=== PATIENT | male | born 1950 | race Caucasian/White ===

== ENCOUNTER 2022-12-15 01:59 | Inpatient (IN) | payer MEDICARE, OTHER ==
[~2022-12-15] VITALS: Ht 172.7 cm; Wt 69.9 kg
--- NOTE | 2022-12-15 02:20 | NUR ---
Patient is medically cleared.
--- NOTE | 2022-12-15 03:34 | NUR ---
Recieved room number from [place]. Pt will be placed in 141-B.
--- NOTE | 2022-12-15 06:30 | NUR ---
Called [facility] and gave report to Jayshree ROBLEDO.
[2022-12-15] MEDS ORDERED: MAG HYDROX/AL HYDROX/SIMETH 30 ML LIQUID UDC PO PRN (06:45)
[2022-12-15] MEDS ORDERED: MAGNESIUM HYDROXIDE 30 ML LIQUID UDC PO PRN (06:45)
[2022-12-15] MEDS ORDERED: ZOLPIDEM 5 MG TABLET PO PRN (06:45)
--- NOTE | 2022-12-15 07:00 | NUR ---
Admission Note: A 72 Yr Old patient was brought to the ER . Pt was placed on a 5150 hold for DTO/DTS Per hold,Patients called stating her locked out of the of her home and was acting erratically, patient also had air gun, and has been making treat to kill his family member in [place]. Pt stated he has no medical , mental, emotional problems, not taking any medications and never has been in psychiatric hospital. Upon face to face evaluation, Pt was irritable,angry, elevated mood, speech is pressured, poor insight. Pt is A/O X3 .Head to toe assessment done and pt was oriented to the unit. A patients rights hand book and advisement provided. Reassurance provided, Fall and Safety measures put in place. No acute distress noted. Continue to monitor for safety, continue with treatment plan, emotional support provided.
[2022-12-15 07:42] VITALS: BP 142/78
--- NOTE | 2022-12-15 09:14 | NUR ---
GPS: Patient Showered/Shave this morning, patient with elevated mood, angry at his and daughter. Patient seen by Psychiatrist, and educated patient on his hold and treatment plan while at [facility]. Patient verbalized understanding.
--- NOTE | 2022-12-15 12:07 | NUR ---
GPS: Spoke patient , (Jasmin), @ . cell phone. Patient requesting to speak to daughter and other family member. refused to provided family member phones number.
[2022-12-15] MEDS: ACETAMINOPHEN 325 MG TABLET PO PRN (12:23)
--- NOTE | 2022-12-15 12:36 | NUR ---
GPS: Patient continues with angry mood stated, "I am not crazy, my send me here, I going to mónica everyone here! Freequent verbal redirection requiering . Complained of Head ache prn pain medication given at this time. Fall and safety precautions implement, emotional support provide. Will continue to monitor.
[2022-12-15] MEDS: LORAZEPAM 1 MG TABLET PO PRN ×2 (14:14→21:47)
--- NOTE | 2022-12-15 14:27 | NUR ---
GPS: Patient verbally abusive, "Fuckers you are keeping in here in [facility], my won't answers the phone, and I want to talk to my daughter and son". as need it medication given for anxiety/agitation at this time, will continue to monitor.
[2022-12-15 16:15] VITALS: BP 130/74
[2022-12-15 19:46] VITALS: BP 126/76
[2022-12-15] MEDS ORDERED: QUETIAPINE FUMARATE 25 MG TABLET PO SCH (21:00)
--- NOTE | 2022-12-16 04:38 | NUR ---
Pt visible on unit and made his needs known. Pt took his bedtime medications and also requested some snacks which he was given before heading to bed. Pt was able to follow redirection without any problems
[2022-12-16 07:40] VITALS: BP 120/58
[2022-12-16] MEDS: ACETAMINOPHEN 325 MG TABLET PO PRN (07:52)
[2022-12-16] MEDS ORDERED: HALOPERIDOL LACTATE 5 MG/1 ML VIAL IM STA (08:29)
[2022-12-16] MEDS ORDERED: diphenhydrAMINE 50 MG/1 ML VIAL IM ONE (08:30)
[2022-12-16] MEDS: HALOPERIDOL 2 MG TABLET PO SCH ×4 (10:29→20:53)
[2022-12-16] MEDS: DIVALPROEX 250 MG TABLET.DR PO SCH ×3 (10:29→17:34)
[2022-12-16] MEDS: BENZTROPINE MESYLATE 1 MG TABLET PO SCH ×2 (10:29→16:00)
--- NOTE | 2022-12-16 14:27 | NUR ---
ISELA Discharge Update: ISELA contacted pt's , Jasmin ([phone]) and left a voicemail for a call back. ISELA also contacted pt's daughter, Cleveland ([phone]) and was not able to leave a voicemail due to full mailbox.
[2022-12-16 15:17] VITALS: BP_SYST 101; BP_SYST 128; BP_DIAS 57; BP_DIAS 66
[2022-12-16 19:20] LABS: CHOLESTEROL 160 mg/dL (<200); HDL CHOLESTEROL 48 mg/dL (40-60); TRIGLYCERIDES 58 MG/DL (30-150)
--- NOTE | 2022-12-16 19:34 | NUR ---
PT HAS BEEN AGITATED ON AND OFF THROUGHT THE SHIFT. EMERGENCY MEDICATIONS GIVEN AND WAS AFFECTIVE. PT IS COMPLIANT WITH MEDICATIONS WITH A LOT OF PROMPTING. PT HAD EPISODES OF BEING VERBALLY AGGRESSIVE AND THREATENING, ESPECIALLY THE DOCTOR AND MALE STAFF. PT IS GRANDIOSE, TALKS ABOUT BEING A BIG BUSINESSMAN. PT IS REDIRECTABLE AT THIS TIME.
[2022-12-16 19:43] LABS: THYROID STIMULATING HORMONE 4.038 mIU/mL (0.358-3.740)
[2022-12-16 19:44] VITALS: BP 126/60
--- NOTE | 2022-12-17 06:15 | NUR ---
Pt presents with labile mood. Takes all medications and is redirectable at times. Able to follow commands. Slept 4.15 hours.
--- NOTE | 2022-12-17 07:56 | NUR ---
GPS: patient in his room asleep. No S/S of distress or discomforts. Fall and safety precautions implemented.
[2022-12-17 08:07] VITALS: BP 122/66
[2022-12-17] MEDS: BENZTROPINE MESYLATE 1 MG TABLET PO SCH ×2 (08:13→16:34)
[2022-12-17] MEDS: DIVALPROEX 250 MG TABLET.DR PO SCH ×3 (08:13→16:34)
[2022-12-17] MEDS: HALOPERIDOL 2 MG TABLET PO SCH ×4 (08:13→20:12)
--- NOTE | 2022-12-17 09:05 | NUR ---
ISELA Discharge Update: ISELA spoke with Linda [facility] who authorized pt for hospitalization until 12/18/22. Authorization #[id number]. ISELA sent daily clinicals for review for continuation of care on 12/18/22. Linda is aware pt will return home with family upon discharge when pt is stable.
--- NOTE | 2022-12-17 09:06 | NUR ---
ISELA UR Note: ISELA spoke with Linda for [employer] who authorized pt for hospitalization until 12/18/22. Authorization #[id number]. ISELA sent daily clinicals for review for continuation of care on 12/18/22. Linda is aware pt will return home with family upon discharge when pt is stable.
--- NOTE | 2022-12-17 09:17 | NUR ---
ISELA Family Contact: SW contacted pt's daughter, Cleveland ([phone]) and discussed pt's discharge plan. Cleveland is aware and agreeable for her father to return kay upon discharge by her transportation. Cleveland stated her and her mother want to help the pt participate in outpatient therapy. ISELA stated this health underwriter will eave resources for Cleveland to receive during her evening visitation. Cleveland was very agreeable and appreciative.
--- NOTE | 2022-12-17 12:34 | NUR ---
ISELA Initial Discharge Note: Pt currently resides at home with his located at [address] [place] [address] ([phone]). Per pt, he will return to his home. ISELA spoke with pt's , Jasmin ([phone]) who stated pt is welcome back home as long as he is compliant with his medications. ISELA spoke with pt's daughter, Cleveland ([phone]) who is also involved his care and will provide pt's transportation home upon discharge. Pt does nto have a DPOA or conservator. ISELA will continue to work with pt, family and MD to ensure a safe and proper discharge plan.
--- NOTE | 2022-12-17 12:39 | NUR ---
Firearms Report: Laborer Driver completed and submitted a [employer] firearms report for 5150 a danger to self and a danger to others. A copy of report has been placed in patient chart.
--- NOTE | 2022-12-17 13:42 | NUR ---
GPS: Patient is refusing 13:00 medications, patient stated: " I dont want to take anymore drugs, leave me alone". Patient with irritable mood, pressured speech, angry, educated patient on the importance of taking medications, but continued to refused. Emotional support provide, Fall and safety precautions implemented. Will continue to monitor.
[2022-12-17 16:01] VITALS: BP 136/76
[2022-12-17 19:39] VITALS: BP 134/66
--- NOTE | 2022-12-18 07:15 | NUR ---
GPS: Patient up in AM, pacing around the hallway, denies pain and discomforts. No outburst behavior. Fall and safety precautions, Emotional support provided.
[2022-12-18 07:46] VITALS: BP 118/73
[2022-12-18] MEDS: HALOPERIDOL 5 MG TABLET PO SCH ×3 (08:24→20:13)
[2022-12-18] MEDS: DIVALPROEX 250 MG TABLET.DR PO SCH ×3 (08:24→16:32)
[2022-12-18] MEDS: BENZTROPINE MESYLATE 1 MG TABLET PO SCH ×2 (08:24→16:32)
[2022-12-18] MEDS ORDERED: HALOPERIDOL 2 MG TABLET PO SCH (09:00)
--- NOTE | 2022-12-18 09:36 | NUR ---
ISELA Discharge Update: ISELA spoke with Linda from [employer] who authorized pt for hospitalization on 12/18/22. Authorization #[id number]. ISELA sent daily clinicals for review for continuation of care on 12/19/22. Linda is aware pt will return home with family on Friday12/20/22. Linda stated she will contact this marine underwriter to provide follow-up psychiatrist appt for pt's continuation of care.
--- NOTE | 2022-12-18 09:37 | NUR ---
ISELA UR Note Update: ISLEA spoke with Linda from [employer] ([phone]) who authorized pt for hospitalization until 12/18/22. Authorization #[id number]. ISELA sent daily clinicals for review for continuation of care on 12/18/22. Linda is aware pt will return home with family upon discharge when pt is stable.
--- NOTE | 2022-12-18 09:37 | NUR ---
ISELA UR Note Review: ISELA spoke with Linda from [employer] who authorized pt for hospitalization on 12/18/22. Authorization #[id number]. ISELA sent daily clinicals for review for continuation of care on 12/19/22. Linda is aware pt will return home with family on Friday12/20/22. Linda stated she will contact this designer writer to provide follow-up psychiatrist appt for pt's continuation of care.
[2022-12-18 14:59] VITALS: BP 123/61
--- NOTE | 2022-12-18 18:16 | NUR ---
GPS: Patient is cooperative, medications compliance, denies pain or discomforts, Denies pain or discomfort. Emotional support provided.
[2022-12-18 19:46] VITALS: BP 115/69
--- NOTE | 2022-12-19 04:45 | NUR ---
Patient alert oriented, patient cooperative with care and medications, patient request for sleeping meds for insomnia, with help after one hour, stayed in his room, cont to monitor.
[2022-12-19 07:30] VITALS: BP 118/69
[2022-12-19] MEDS: DIVALPROEX 250 MG TABLET.DR PO SCH ×3 (08:51→17:22)
[2022-12-19] MEDS: HALOPERIDOL 5 MG TABLET PO SCH ×3 (08:51→20:47)
[2022-12-19] MEDS: BENZTROPINE MESYLATE 1 MG TABLET PO SCH ×2 (08:51→17:22)
--- NOTE | 2022-12-19 15:11 | NUR ---
Received patient pacing in the hallway. Patient is A/O X 3 to person, place, environment. Patient is demanding, needy, argumentative, talkative, compliant with medications with prompts, ambulatory without assistance. Emotional support provided. Fall and safety precautions implemented.
[2022-12-19 15:45] VITALS: BP 124/68
[2022-12-19] MEDS: CYANOCOBALAMIN 1,000 MCG TABLET PO SCH (17:24)
[2022-12-19 20:01] VITALS: BP 117/75
[2022-12-19 20:05] VITALS: BP 117/75
--- NOTE | 2022-12-20 04:36 | NUR ---
GPS NOTES: Patient ambulating in the hallway, A&0x4, orientation to current situation and reality intact. He is somewhat needy, making multiple requests. Needs setting limit to the behavior, at some point gets agitated and argues with staff because request is denied. Patient is med compliant. He is sleeping intermittently this shift, no distress observed. Safety strategies in placed.
[2022-12-20 07:31] VITALS: BP 106/59
[2022-12-20] MEDS: HALOPERIDOL 5 MG TABLET PO SCH ×2 (08:57→17:00)
[2022-12-20] MEDS: BENZTROPINE MESYLATE 1 MG TABLET PO SCH ×2 (08:57→17:00)
[2022-12-20] MEDS: CYANOCOBALAMIN 1,000 MCG TABLET PO SCH (08:57)
[2022-12-20] MEDS: DIVALPROEX 250 MG TABLET.DR PO SCH ×3 (08:57→17:00)
--- NOTE | 2022-12-20 14:58 | NUR ---
Patient is A/O X 3 to person, place, situation. Patient is demanding, needy, fixated on cleaning, suspicious and selective with medications. Patient states "Tell the doctor that those pills are poisoning me, I feel sleepy all the time". Patient requires no assistance with ADL. Active listening provided. Fall and safety precautions implemented.
[2022-12-20 15:48] VITALS: BP 118/66
--- NOTE | 2022-12-20 16:57 | NUR ---
REceived orders to discharge this patient to home at [address] [place] [address] by his son's private transportation. Patient is agreeable with discharge plans, and signed all discharge documents. All belongings were returned to patient. Patient denies SI/HI AH/VH, SOB, pain or any discomfort. Patient left unit at 1650. Emotional support provided. Fall and safety precautions implemented.
== END 2022-12-20 16:50 | disposition home or self-care (01) | DRG 885 ==
LOC: ER 01:59 → GPS 06:23
PROVIDERS: ADMIT Psychiatry & Neurology Psychiatry; ATTEND Nurse Practitioner Family
DX: F29 Unspecified psychosis not due to a substance or known physiological condition (principal); F31.2 Bipolar disorder, current episode manic severe with psychotic features; E03.8 Other specified hypothyroidism; Z86.19 Personal history of other infectious and parasitic diseases; E53.8 Deficiency of other specified B group vitamins; R45.850 Homicidal ideations; R73.9 Hyperglycemia, unspecified; Z20.822 Contact with and (suspected) exposure to COVID-19
CPT/HCPCS: 36415; 82747; 84443; 85014; A4663; J1200; J1630; J3490

== ENCOUNTER 2022-12-23 21:22 | Inpatient (IN) | payer OTHER ==
[~2022-12-23] VITALS: Ht 170.2 cm; Wt 69.9 kg
--- NOTE | 2022-12-23 21:30 | NUR ---
PT BIBA TO RM 2B VIA STRETCHER, VSS AND NAD OBSERVED. REPORT RECEIVED FROM PARAMEDICS.
--- NOTE | 2022-12-23 21:31 | NUR ---
Patient assigned bed 145 C for [facility] if medically cleared by Dr. Navarro.
[2022-12-23] MEDS ORDERED: diphenhydrAMINE 50 MG/1 ML VIAL IM ONE (21:45)
[2022-12-23] MEDS ORDERED: HALOPERIDOL LACTATE 5 MG/1 ML VIAL IM ONE (21:45)
[2022-12-23] MEDS ORDERED: HALOPERIDOL LACTATE 5 MG/1 ML VIAL ONE (21:46)
[2022-12-23] MEDS ORDERED: diphenhydrAMINE 50 MG/1 ML VIAL ONE (21:46)
--- NOTE | 2022-12-23 21:50 | NUR ---
LAB AT BEDSIDE DRAWING BLOOD.
[2022-12-23 22:04] LABS: HEMATOCRIT 39.4 % (36.7-47.1); MEAN CORPUSCULAR HEMOGLOBIN 32.4 uug (23.8-33.4); MEAN CORPUSCULAR VOLUME 96.1 fL (73.0-96.2); PLATELET COUNT (AUTO) 339 K/uL (152-348)
[2022-12-23 22:17] LABS: CARBON DIOXIDE 28 mmol/L (21-32); CHLORIDE 104 mmol/L (98-107); CREATININE 1.1 mg/dL (0.6-1.3); GLUCOSE 104 mg/dL (74-106); POTASSIUM 4.2 mmol/L (3.5-5.1); UREA NITROGEN, BLOOD 23 mg/dL (7-18)
--- NOTE | 2022-12-23 22:19 | NUR ---
CHEST X RAY DONE AT BEDSIDE.
--- NOTE | 2022-12-23 22:20 | NUR ---
PT EATING A MEAL.
[2022-12-23 22:22] LABS: ALANINE AMINOTRANSFERASE 22 U/L (16-63); ALKALINE PHOSPHATASE 83 U/L (50-136); ASPARTATE AMINOTRANSFERASE 15 U/L (15-37); BILIRUBIN,DIRECT 0.2 mg/dL (0.0-0.2); BILIRUBIN,TOTAL 0.6 mg/dL (0.2-1.0); TOTAL PROTEIN, SERUM 7.3 g/dL (6.4-8.2)
[2022-12-23 22:28] LABS: ETHANOL < 3 MG/DL (0-0)
[2022-12-23 22:30] LABS: THYROID STIMULATING HORMONE 2.676 mIU/mL (0.358-3.740)
--- NOTE | 2022-12-23 22:30 | NUR ---
Patient medically cleared by Dr. Navarro. Patient assigned Dr. Umanzor/Dr. Shaffer.
--- NOTE | 2022-12-23 22:34 | NUR ---
Report given to Nurse Madera.
[2022-12-23 22:47] LABS: ACETAMINOPHEN < 2.0 ug/mL (10-30)
--- NOTE | 2022-12-23 23:21 | NUR ---
URINE SAMPLE SENT TO LAB.
[2022-12-23 23:27] LABS: *BILIRUBIN,URIN NEGATIVE (NEGATIVE); *CLARITY,URINE CLEAR (CLEAR); *COLOR,URINE YELLOW (YELLOW); *KETONES,URINE NEGATIVE (NEGATIVE); *UROBILINOGEN,URINE 0.2 E.U./dl (NORMAL); LEUKOCYTE ESTERASE ,URINE NEGATIVE (NEGATIVE); NITRITE, URINE NEGATIVE (NEGATIVE); PH,URINE 6.5 (5.0-8.0); UGLUCOSE NEGATIVE (NEGATIVE)
[2022-12-23 23:36] LABS: *BLOOD, URINE NEGATIVE (NEGATIVE)
[2022-12-23 23:46] LABS: *AMPHETAMINE, URINE NEGATIVE (NEGATIVE); *CANNABINOID, URINE NEGATIVE (NEGATIVE); *COCCAINE, URINE NEGATIVE (NEGATIVE); *PHENCYCLIDINE SCREEN,URINE NEGATIVE (NEGATIVE)
--- NOTE | 2022-12-24 00:10 | NUR ---
Notified patient's daughter (Cleveland Case) of MHU admission.
--- NOTE | 2022-12-24 00:30 | NUR ---
Patient admitted to [facility].
--- NOTE | 2022-12-24 01:20 | NUR ---
Patient was tasken to [facility]. Nurse Madera aware of patient's arrival to unit. Belongings list completed.
[2022-12-24] MEDS ORDERED: LORAZEPAM 0.5 MG TABLET PO PRN (01:30)
[2022-12-24] MEDS ORDERED: MAGNESIUM HYDROXIDE 30 ML LIQUID UDC PO PRN (01:30)
[2022-12-24] MEDS ORDERED: BLOOD SUGAR DIAGNOSTIC 1 EACH STRIP VI ONE (01:30)
[2022-12-24] MEDS ORDERED: ACETAMINOPHEN 325 MG TABLET PO PRN (01:30)
[2022-12-24] MEDS ORDERED: MAG HYDROX/AL HYDROX/SIMETH 30 ML LIQUID UDC PO PRN (01:30)
[2022-12-24 01:40] VITALS: BP 111/71
--- NOTE | 2022-12-24 02:22 | NUR ---
Nursing Admission Note: Received 72 y/o male patient on a 5150 hold d/t DTS, DTO, GD. Pt will under the care of Dr. Shaffer and Dr. Umanzor. Per hold, pt was brought into the ER via [employer]. The daughter called the police on him d/t the patient threatening her with a power drill. He was also noted to not have been taking his medications for days. He had also threatened to kill his . Upon face to face assessment, patient was AOx3, self ambulatory, and self care. He was calm, withdrawn, and slightly down in mood. He denied all reasons for his hold. He was given his Advisement, Patient's Rights, and his own Patient's Handbook. Patient refused any snacks or drinks, and just wanted to be brought to his room where he quickly fell asleep. All safety strategies implemented. Will continue to monitor.
[2022-12-24 07:30] VITALS: BP 141/90
[2022-12-24] MEDS: HALOPERIDOL 5 MG TABLET PO SCH ×3 (09:43→20:00)
[2022-12-24] MEDS: DIVALPROEX 250 MG TABLET.DR PO SCH ×3 (09:43→17:00)
[2022-12-24] MEDS: BENZTROPINE MESYLATE 1 MG TABLET PO SCH ×3 (09:43→17:00)
--- NOTE | 2022-12-24 12:34 | NUR ---
ISELA UR Note Update: ISELA contacted Linda from [employer] ([phone]) and left a voicemail for a call back to discuss pt's discharge plan and new admission for authorization for continuation of care at [facility]. ISELA also spoke with pt's daughter, Cleveland ([phone]) regarding the voicemail and pending authorization from [employer].
--- NOTE | 2022-12-24 14:47 | NUR ---
Receive patient pacing in the hallway. Patient is A/O X 3 to person, place. Patient has poor judgement and impulse control, has outburst and agitation at times, talkative, argumentative, needy, demanding, compliant with medications with lots of prompts, but refuses 13:00 Psych medication. Patient requires no assistance with ADL, ambulates independently, continent. Active listening is provided. Fall and safety precautions implemented.
[2022-12-24 15:30] VITALS: BP 97/49
[2022-12-24 20:01] VITALS: BP 109/70
--- NOTE | 2022-12-24 21:12 | NUR ---
Patient was restless and asked for a sleeping aid. Temazepam 7.5 mg po prn was given. Safety strategies in place. Will continue to monitor.
[2022-12-24] MEDS: TEMAZEPAM 7.5 MG CAPSULE PO PRN (21:14)
[2022-12-25 07:56] VITALS: BP 118/90
[2022-12-25] MEDS: BENZTROPINE MESYLATE 1 MG TABLET PO SCH ×2 (08:10→20:14)
[2022-12-25] MEDS: HALOPERIDOL 5 MG TABLET PO SCH ×2 (08:10→20:14)
[2022-12-25] MEDS: DIVALPROEX 250 MG TABLET.DR PO SCH (08:10)
--- NOTE | 2022-12-25 08:33 | NUR ---
ISELA UR NOTE: ISELA spoke with Linda ([phone]) from [facility] who provided SW with pt's authorization number for continuation of stay until 12/26/22. ISELA will provide daily updates for pt's daily review per Linda. Authorization #[id number]. F:[phone]
--- NOTE | 2022-12-25 09:12 | NUR ---
SW ATTESTATION: IIra, SCREENER OPERATOR attest to the accuracy of the psychosocial done on December 17, 2022. On the admission for December 17, 2022, the patient was admitted to [facility]. He was living at home with family located at [address] [place] [address] ([phone]). SW had spoken to pts daughterCleveland ([phone]) who had stated that pt is welcome back home and confirmed to provide his transportation upon discharge. This writer editor continually updated Cleveland and the pt on his treatment and discharge plan updates. Pt was stable for discharge by pts psychiatrist, Dr. Shaffer and was successfully discharged home with [employer] transportation. This SW arranged psychiatrist and lining baster appointment for the pt to follow-up with Linda from [facility] ([phone]) who authorized pt for hospitalization (authorization #[id number]) throughout his stay. Pt will follow-up with psychiatrist, Dr. Munoz upon discharge, IRRIGATOR GRAVITY FLOW, Jonn Colin and counter caser, Tereza. Pt denied suicidal and homicidal ideations. Pt denied visual and auditory hallucinations. During admission of December 24, 20222022, pt. appeared to be verbally abusive and impulsive. Pt was readmitted on December, due to destructive behavior at home and verbally abusive. Pt was feeling angry. Pt was yelling and not redirectable without regards to his safety. During this writers evaluation, pt. appeared to be angry and continually yelled, This is snf! Pt stated, I want to go home I dont deserve this!. Pt appeared unable to have a proper conversation due to his anger. Pt appeared unable to focus and appears to be mentally preoccupied with his anger towards his family. yarn worker will contact pts daughter, Cleveland ([phone]) to see if pt is welcomed back home. If not, this SW will find an alternative placement for pt. Family will be notified.
--- NOTE | 2022-12-25 09:13 | NUR ---
SW ATTESTATION UPDATE: IIra, TESTING MANAGER attest to the accuracy of the psychosocial done on December 17, 2022. On the admission for December 17, 2022, the patient was admitted to [facility]. He was living at home with family located at [address] [place] [address] ([phone]). SW had spoken to pts daughterCleveland ([phone]) who had stated that pt is welcome back home and confirmed to provide his transportation upon discharge. This travel writer continually updated Cleveland and the pt on his treatment and discharge plan updates. Pt was stable for discharge by pts psychiatrist, Dr. Shaffer and was successfully discharged home with [employer] transportation. This SW arranged psychiatrist and amphibious operations officer appointment for the pt to follow-up with Linda from [facility] ([phone]) who authorized pt for hospitalization (authorization #[id number]) throughout his stay. Pt will follow-up with psychiatrist, Dr. Munoz upon discharge, RIPPLER, Jonn Colin and case aide, Tereza. Pt denied suicidal and homicidal ideations. Pt denied visual and auditory hallucinations. During admission of December 24, 20222022, pt. appeared to be verbally abusive and impulsive. Pt was readmitted on December, due to destructive behavior at home and verbally abusive. Pt was feeling angry. Pt was yelling and not redirectable without regards to his safety. During this writers evaluation, pt. appeared to be angry and continually yelled, This is senior living! Pt stated, I want to go home I dont deserve this!. Pt appeared unable to have a proper conversation due to his anger. Pt appeared unable to focus and appears to be mentally preoccupied with his anger towards his family. christmas tree farm worker will contact pts daughter, Cleveland ([phone]) to see if pt is welcomed back home. If not, this SW will find an alternative placement for pt. Family will be notified.
--- NOTE | 2022-12-25 15:44 | NUR ---
Patient is hyperverbal, and verbally abusive, trying to stand on the top of the table to jump the fence, but redirectable. Patient is compliant with medications. Patient refuses labs. Reality orientation provided. Fall and safety precautions implemented.
--- NOTE | 2022-12-25 16:09 | NUR ---
Pt's daughter Cleveland called to check on pt's status, updated daughter. She said that she tried to visit the pt yesterday but he refused so she will try to visit tomorrow.
[2022-12-25 16:12] VITALS: BP 109/64
[2022-12-25 19:56] VITALS: BP 120/69
[2022-12-25] MEDS: DIVALPROEX 500 MG TABLET.DR PO SCH (20:14)
[2022-12-25] MEDS ORDERED: DIVALPROEX 250 MG TABLET.DR PO SCH (21:00)
--- NOTE | 2022-12-25 21:31 | NUR ---
GPS: Pt.is needy,easily irritable/agitated when his demands are not granted. Has poor insight/judgment to present situation. Has poor impulse control. Took bedtime meds.earlier without any problems. Re-directed prn. Safe environment provided. Will continue to monitor.
[2022-12-25] MEDS: TEMAZEPAM 7.5 MG CAPSULE PO PRN (23:49)
--- NOTE | 2022-12-26 07:00 | NUR ---
GPS Nursing notes: Patient is up and about pacing with irritable mood, "I dont know why I am here". Patient with poor insight. Will continue to monitor.
[2022-12-26] MEDS: HALOPERIDOL 5 MG TABLET PO SCH ×2 (08:40→20:36)
[2022-12-26] MEDS: BENZTROPINE MESYLATE 1 MG TABLET PO SCH ×2 (08:40→20:36)
[2022-12-26] MEDS: DIVALPROEX 500 MG TABLET.DR PO SCH ×2 (08:40→20:36)
--- NOTE | 2022-12-26 09:08 | NUR ---
ISELA UR NOTE: ISELA spoke with Linda ([phone]) from [facility] who provided SW with pt's authorization number for continuation of stay until 12/27/22. ISELA will provide daily updates for pt's daily review per Linda. Authorization #[id number]. F:[phone].
[2022-12-26 09:23] VITALS: BP 103/61
--- NOTE | 2022-12-26 10:00 | NUR ---
GPS Nursing Notes: Patient placed on a 14 day hold, Notice of certification given to patient, Request of PCH requested via [facility]. Educated patient on 14 Day hold Certification.
--- NOTE | 2022-12-26 12:38 | NUR ---
GPS Nursing notes: Patient still with irritable moods, eating lunch at this time, patient took morning medications, Per,"No quiero cheryle a esas putas yo no quiero a mi hija, no quiero estar con vivi" (I want those b, I dont want my daughter, I dont want be with them). Patient verbalized hostility towards his family, perinatal social worker aware, patient also verbalized he will break things if he is not discharge. Education patient on the importance, to control and express his anger and frustration in appropriated manner. Patient contract for safety at this time will continue to monitor.
[2022-12-26] MEDS: LORAZEPAM 1 MG TABLET PO PRN (13:07)
--- NOTE | 2022-12-26 13:12 | NUR ---
GPS Nursing Notes: 1:1 verbal interaction, educating patient on his anger, destructive behavior, PRN po for anxiety given at this time. Will continue to monitor.
[2022-12-26 16:10] VITALS: BP 99/58
[2022-12-26 20:40] VITALS: BP 103/52
--- NOTE | 2022-12-27 06:06 | NUR ---
GPS: Pt.slept 6.15 last night. Remains irritable and easily agitated at times. Poor impulse control. Re-directed and re-assured prn. Takes due meds.when given. Safe environment provided. Will continue to monitor.
--- NOTE | 2022-12-27 07:37 | NUR ---
GPS Nursing notes: Patient is up walking around unit with steady gait, with no S/S of distress or discomforts noted, stated he feels fine, seen by Psychiatrist at this time. Will continue to monitor.
[2022-12-27] MEDS: HALOPERIDOL 5 MG TABLET PO SCH ×2 (08:15→20:08)
[2022-12-27] MEDS: DIVALPROEX 500 MG TABLET.DR PO SCH ×2 (08:15→20:08)
[2022-12-27] MEDS: BENZTROPINE MESYLATE 1 MG TABLET PO SCH ×2 (08:15→20:08)
[2022-12-27 08:44] VITALS: BP 106/64
[2022-12-27] MEDS ORDERED: HALOPERIDOL DECANOATE 50 MG/1 ML AMPUL IM SCH (09:00)
[2022-12-27] MEDS: HALOPERIDOL DECANOATE 50 MG/1 ML AMPUL IM SCH (09:20)
--- NOTE | 2022-12-27 09:40 | NUR ---
GPS Nursing notes: New ordered by Psychiatrist for Haldol Decanoate IM, educated patient on medication, patient agreeable to take medication. First dose given to left Gluteal, patient tolerated well. Emotional support provided, Will continue to monitor.
--- NOTE | 2022-12-27 13:32 | NUR ---
ISELA UR NOTE UPDATE: ISELA spoke with Linda ([phone]) from [facility] for continuation of stay until 12/30/22. ISELA will provide updates to Linda on Friday. Authorization #[id number]. F:[phone].
[2022-12-27 16:08] VITALS: BP 111/61
[2022-12-27] MEDS: LORAZEPAM 1 MG TABLET PO PRN (20:08)
[2022-12-27 20:13] VITALS: BP 125/76
--- NOTE | 2022-12-28 02:18 | NUR ---
Received patient wandering around the unit. Hyperactive, hyperverbal and intrusive.This patient has multiple demands , acts initialed and shows poor impulse control with no respect for boundaries. The patient is continually complaining about everything and everybody. He also slammed the door to his room a few times. When medications were offered, the patient was hesitant and stated " I don't need medicine, are you trying to kill me? " This technical report writer educated and encourage the patient about the risks and benefits of the medications. The patient verbalizes wanting to harm family. This information was also endorsed to this technical report writer and the Psychiatrist and oncology social work are well aware of his threats from the previous admission and this admission. Safety Stratiges are in place. Continuing to monitor for aggressive, labile outbursts and compliance. Sleep hours are poor so far.
[2022-12-28 08:15] VITALS: BP 110/59
[2022-12-28] MEDS: HALOPERIDOL 5 MG TABLET PO SCH ×2 (08:23→21:05)
[2022-12-28] MEDS: BENZTROPINE MESYLATE 1 MG TABLET PO SCH ×2 (08:23→21:05)
[2022-12-28] MEDS: DIVALPROEX 500 MG TABLET.DR PO SCH ×2 (08:23→21:05)
--- NOTE | 2022-12-28 14:28 | NUR ---
Gps/Lens Edge Grinder Machine- Had been in and out of his activity room. Less anxious, calmer. Making simple needs known to the staff. Noted pacing in his room couple of times, looking outside. Kept using for the phone, wanting to talk to his family.
--- NOTE | 2022-12-28 16:46 | NUR ---
Gps/Sales Executive- Daughter Cleveland called wants to talk to patient , noted patient asleep , flat on his stomach , snoring informed daughter patient did'nt have a good night sleep , allowed patient to sleep for now.Informed of visiting hours , daughter planned to visit, and wants to bring food from home. for dinner.
[2022-12-28 17:26] VITALS: BP 108/54
[2022-12-28] MEDS: LORAZEPAM 1 MG TABLET PO PRN (19:51)
[2022-12-29 08:08] VITALS: BP 100/59
[2022-12-29] MEDS: HALOPERIDOL 5 MG TABLET PO SCH ×2 (08:39→20:53)
[2022-12-29] MEDS: DIVALPROEX 500 MG TABLET.DR PO SCH ×2 (08:39→20:53)
[2022-12-29] MEDS: BENZTROPINE MESYLATE 1 MG TABLET PO SCH ×2 (08:39→20:53)
--- NOTE | 2022-12-29 10:51 | NUR ---
Gps/Metallic Yarn Slitting Machine Operator- Hesitancy taking his routine am meds.,claimed he's taking too much medicine, reviewed with patient , rationale , patient verbalized understanding .Stayed in his group , but had been in and out of his activities, was constantly wanting to use the phone.
--- NOTE | 2022-12-29 11:18 | NUR ---
Gps/Parent Aide- Complained of not feeling well, , claimed feeling weak, v/s checked b/p 110/59 HR 68 , denies pain, in no sign of any distress, noted constantly on the phone, talked to daughter Cleveland ,and his brother
[2022-12-29 16:14] VITALS: BP 99/55
[2022-12-29 20:24] VITALS: BP 104/57
[2022-12-29] MEDS: LORAZEPAM 1 MG TABLET PO PRN (20:53)
--- NOTE | 2022-12-30 03:42 | NUR ---
The patient continues to be reluctant to take medications and argumentative with this screen writer when trying to engage in any meaningful conversation with him. He has verbalized clearly that he will not be taking medications when he gets home. A lot of encouragement and education needed when its time for 2100 medications. The patient has poor insight and does not believe that he has any issues with anger or any mental illness. A few times during the shift the patient would complain about the environment, the room mates , the Doctors ETC. He is labile and can get aggressive, argumentative , irritated and hostile without warning. Poor impulse control continues to be an issue with him. When this patient received a phone call from his daughter, at the start of the shift, his mood was clearly elevated when he hung up. Safety Stratiges are in place and ongoing. The plan is for discharge later today, but this screen writer will endorse and advocate that he is not ready and could cause harm to others when he gets home.
[2022-12-30 07:53] VITALS: BP 106/62
[2022-12-30] MEDS: HALOPERIDOL 5 MG TABLET PO SCH ×2 (08:52→20:15)
[2022-12-30] MEDS: DIVALPROEX 500 MG TABLET.DR PO SCH ×2 (08:53→20:15)
[2022-12-30] MEDS: BENZTROPINE MESYLATE 1 MG TABLET PO SCH ×2 (08:53→20:15)
--- NOTE | 2022-12-30 09:51 | NUR ---
GPS Nursing Notes: [facility] for 5250, 14 day hold, today, per court Hearing Patient on Hold for DTO/GD.
--- NOTE | 2022-12-30 11:24 | NUR ---
SW Discharge Update: SW spoke with pt's daughter, Cleveland ([phone]) regarding pt's court hearing being upheld for GD and DTO. Cleveland is aware and spoke with Dr. Shaffer and this SW that pt's new anticipated discharge date is for Friday01/01/23. Cleveland is agreeable and stated she will provide transportation for the pt's return home on Friday.
--- NOTE | 2022-12-30 11:30 | NUR ---
ISELA UR NOTE UPDATE: ISELA contacted Linda ([phone]) from [facility] and left a voicemail informing her that the pt will continue hospitalization in [facility] until Friday01/01/23. ISELA faxed new hold and clinicals to Linda.
--- NOTE | 2022-12-30 11:32 | NUR ---
ISELA UR NOTE UPDATE: ISELA contacted Linda ([phone]) from [facility] and left a voicemail informing her that the pt will continue hospitalization in [facility] until Friday01/01/23. ISELA faxed new hold and clinicals to Linda. Authorization #[id number] F:[phone]
--- NOTE | 2022-12-30 14:17 | NUR ---
GPS: Nursing Notes: Destructive Behavior To Others: Patient is awake and responding to his name, poor anger management, poor impulse control, gets easily irritable when redirected, gets easily angry when his demands are not met immediately, unable to formulate a viable plan for self care, needs prompting to participate in therapeutic groups, unpredictable behavior, labile, continue to monitor for safety, continue with treatment plan.
[2022-12-30 16:35] VITALS: BP 96/56
[2022-12-30 20:04] VITALS: BP 104/64
[2022-12-31 07:30] VITALS: BP 116/89
[2022-12-31] MEDS: BENZTROPINE MESYLATE 1 MG TABLET PO SCH ×3 (08:39→21:07)
[2022-12-31] MEDS: HALOPERIDOL 5 MG TABLET PO SCH ×2 (08:39→21:07)
[2022-12-31] MEDS: DIVALPROEX 500 MG TABLET.DR PO SCH ×3 (08:39→21:07)
--- NOTE | 2022-12-31 14:38 | NUR ---
GPS: Nursing Notes: Destructive Behavior To Others: Patient is awake and responding to his name, needs prompting to participate in therapeutic groups, compliant with his medications, gets easily irritable when his demands are not met immediately, argumentative at times, unable to formulate a viable plan for self care, denies SI/HI, poor impulse control at times, but no aggressive behavior noted, continue to monitor for safety, continue with treatment plan.
[2022-12-31 15:33] VITALS: BP 114/76
[2022-12-31 20:00] VITALS: BP 115/59
[2022-12-31] MEDS: TEMAZEPAM 7.5 MG CAPSULE PO PRN (21:07)
[2022-12-31] MEDS: HALOPERIDOL DECANOATE 50 MG/1 ML AMPUL IM SCH (21:14)
--- NOTE | 2023-01-01 07:14 | NUR ---
GPS: NURSES NOTES: RECEIVED PATIENT ALERT AND ORIENTED ISOLATIVE IN TV ROOM 14 DAY HOLD EXPIRES January WHICH EXPIRES ON 01.09.2023 IN THE AM NO SIGNS OF RESPIRATORY DISTRESS NOTED. PT TOOK ONLY TOOK OF HIS MEDICATION BECAME AGITATED DISCUSSING REST OF MEDICATION. PT IS SCHEDULED FOR DISCHARGE THIS AM.
[2023-01-01 07:30] VITALS: BP 126/81
[2023-01-01] MEDS ORDERED: HALOPERIDOL DECANOATE 50 MG/1 ML AMPUL IM SCH (08:44)
[2023-01-01] MEDS: DIVALPROEX 500 MG TABLET.DR PO SCH (08:56)
[2023-01-01] MEDS: HALOPERIDOL 5 MG TABLET PO SCH (08:56)
[2023-01-01] MEDS: BENZTROPINE MESYLATE 1 MG TABLET PO SCH (08:56)
--- NOTE | 2023-01-01 09:58 | NUR ---
ISELA Discharge Note: Pt will be discharged home located at [address] [place], [place] [id number] via pts daughter, Rhett ([phone]) private vehicle transportation to return home at 1PM. ISELA spoke with [place] who states she is ready to accept the pt today. Pt is aware and agreeable with discharge None per pt.ge plan. Pt is alert and oriented x4, is unable to plan for self-care at this time. However, pt is willing to accept care at home. Pt denies any suicidal or homicidal ideation. Pt will follow-up at the facility with his outpatient licensed clinical therapist, Jonn Colin [phone] within 7 days of discharge and rn field case manager, Tereza. Pts outpatient rn field case manager is Dalia at [phone]. Pt will follow-up with his outpatient Psychiatrist, Dr. Munoz and Computer Aide, Dr. German ([phone]) [address] [facility] [address], [address] [id number]. Above appointments have been confirmed by Linda from [facility] ([phone]). Pts family is aware and agreeable. Pt presents with calm mood and congruent affect. PHARMACY: [facility] [address] [place], [place] ([phone].
--- NOTE | 2023-01-01 09:59 | NUR ---
ISELA Final Discharge Note: Pt will be discharged home located at [address] [place], [place] [id number] via pts daughter, Rhett ([phone]) private vehicle transportation to return home at 1PM. ISELA spoke with [place] who states she is ready to accept the pt today. Pt is aware and agreeable with discharge None per pt.ge plan. Pt is alert and oriented x4, is unable to plan for self-care at this time. However, pt is willing to accept care at home. Pt denies any suicidal or homicidal ideation. Pt will follow-up at the facility with his outpatient licensed clinical therapist, Jonn Colin [phone] within 7 days of discharge and community case manager, Tereza. Pts outpatient community case manager is Dalia at [phone]. Pt will follow-up with his outpatient Psychiatrist, Dr. Munoz and Theatre Instructor, Dr. German ([phone]) [address] [facility], [address] [address]. Above appointments have been confirmed by Linda from [facility] ([phone]). Pts family is aware and agreeable. Pt presents with calm mood and congruent affect. PHARMACY: [facility] [address] [place], [place] ([phone].
--- NOTE | 2023-01-01 11:24 | NUR ---
SW Discharge Update: ISELA spoke with pt's daughter, Cleveland ([phone]) to confirm discharge today at 1PM by Cleveland's transportation. Cleveland is aware and confirmed 1PM pickup to return to home [address] [place] [address].
--- NOTE | 2023-01-01 14:26 | NUR ---
Received orders to discharge this patient to home located at [address] [place] [address] via pts daughterRhett ([phone]) private vehicle transportation to return home at 1PM. Patient is agreeable with discharge plans, and signed all discharge documents. Patient denies SI/HI AH/VH, SOB, pain or any discomfort. Patient left the unit at 13:15. All belongings and valuables were returned to patient. Emotional support provided. Fall and safety precautions implemented.
[2023-01-24] MEDS ORDERED: HALOPERIDOL DECANOATE 50 MG/1 ML AMPUL IM SCH (09:00)
== END 2023-01-01 13:15 | disposition home or self-care (01) | DRG 885 ==
LOC: ER 21:25 → GPS 12-24 00:30
PROVIDERS: ADMIT Psychiatry & Neurology Psychiatry; ATTEND Nurse Practitioner Acute Care
DX: F31.2 Bipolar disorder, current episode manic severe with psychotic features (principal); B57.2 Chagas' disease (chronic) with heart involvement; Z20.822 Contact with and (suspected) exposure to COVID-19
CPT/HCPCS: 36415; 71045; 84443; 85025; 93005; A4663; G0480; J1200; J1630; J1631; J3490